=== PATIENT | female | born 1970 | race American Indian/Alaskan Native ===

== ENCOUNTER 2017-10-25 11:50 | Emergency (ER) | payer MEDICAID ==
[2017-10-25 11:51] VITALS: BMI 32.2
[2017-10-25 11:56] VITALS: O2SAT 98
--- NOTE | 2017-10-25 12:31 | C.PDOC ---
History Of Present Illness 47 yo female c/o headache that started just prior to arrival. Pt notes that she was showering, and got a headache "all over". No visual changes, photophobia, n/ v, trauma, fever, URI symptoms, subjective neurological changes. Did not take any pain medication - notes "I dont get headaches." Time Seen by Provider: 10/25/17 11:59 Chief Complaint (Nursing): Headache Past Medical History Reviewed: Historical Data, Nursing Documentation, Vital Signs Vital Signs: Last Vital Signs Temp 98.2 F 10/25/17 13:45 Pulse 75 10/25/17 13:45 Resp 18 10/25/17 13:45 BP 132/75 10/25/17 13:45 Pulse Ox 98 10/25/17 17:23 - Medical History PMH: Bipolar Disorder Surgical History: No Surg Hx Family History: States: No Known Family Hx - Social History Hx Alcohol Use: Yes Hx Substance Use: No - Immunization History Hx Tetanus Toxoid Vaccination: No Hx Influenza Vaccination: No Hx Pneumococcal Vaccination: No Physical Exam - Physical Exam Appears: Non-toxic, No Acute Distress Skin: Normal Color, Warm, Dry, No Rash Head: Atraumatic, Normacephalic Eye(s): bilateral: Normal Inspection, PERRL, EOMI Nose: Normal Oral Mucosa: Moist Neck: Normal ROM, Supple Chest: Symmetrical Cardiovascular: Rhythm Regular Respiratory: Normal Breath Sounds, No Accessory Muscle Use, No Rales, No Rhonchi , No Wheezing Gastrointestinal/Abdominal: Soft, No Tenderness, No Guarding, No Rebound Extremity: Normal ROM, Capillary Refill (<2 seconds) Neurological/Psych: Oriented x3, Normal Speech, Normal Cognition, Normal Cranial Nerves (no focal deficits), Normal Motor (5/5 against resistance b/l), Normal Sensation Gait: Steady ED Course And Treatment - Laboratory Results Result Diagrams: 10/25/17 12:55 10/25/17 12:55 O2 Sat by Pulse Oximetry: 98 (RA) Pulse Ox Interpretation: Normal - CT Scan/US Head w/o contrast Other Rad Studies (CT/US): Read By Radiologist, Radiology Report Reviewed CT/US Interpretation: PROCEDURE: CT scan brain dated 10/25/2017. HISTORY: R/ O Bleed. COMPARISON: None available. TECHNIQUE: Axial computed tomography images were obtained through the head/brain without intravenous contrast. Radiation dose: Total exam DLP = 866.81 mGy-cm. This CT exam was performed using one or more of the following dose reduction techniques: Automated exposure control, adjustment of the mA and/or kV according to patient size, and/ or use of iterative reconstruction technique. FINDINGS: HEMORRHAGE: No acute parenchymal, subarachnoid or extra-axial hemorrhage. BRAIN: No mass effect or edema. No atrophy or chronic microvascular ischemic changes. VENTRICLES: Unremarkable. No hydrocephalus. CALVARIUM: Unremarkable. PARANASAL SINUSES: Hypoplastic frontal sinuses. The remaining visualized paranasal air complexes are otherwise relatively there well-developed and currently well-aerated. MASTOID AIR CELLS: Mastoid air complexes are well-developed and currently well- aerated. OTHER FINDINGS: None. IMPRESSION: No acute intracranial hemorrhage. Progress Note: On reassessment, patient is resting comfortably, is tolerating PO , and pain has improved. Patient has no neurologic deficit, photophobia, rash, fever, or nuchal rigidity. Patient was instructed to follow up with physician/ clinic in 1-2 days. Disposition - Disposition Referrals: Diane Perry MD [Medical Doctor] - Disposition: HOME/ ROUTINE Disposition Time: 13:43 Condition: GOOD Additional Instructions: Follow up with primary medical doctor in 1-3 days without fail for further evaluation. Take medications as prescribed. Return to the emergency department at any time if symptoms persist or worsen. Prescriptions: Naproxen [Naprosyn] 1 tab PO BID PRN #20 tab PRN Reason: Pain Instructions: Acute Headache (ED) Forms: [facility] (Lao) - Clinical Impression Clinical Impression: Headache - PA / ASSISTANT CHIEF NURSING OFFICER / Resident Statement MD/DO has reviewed & agrees with the documentation as recorded. - Scribe Statement The provider has reviewed the documentation as recorded by the Susanibmark Mcgregor All medical record entries made by the Vasile were at my direction and personally dictated by me. I have reviewed the chart and agree that the record accurately reflects my personal performance of the history, physical exam, medical decision making, and the department course for this patient. I have also personally directed, reviewed, and agree with the discharge instructions and disposition.
--- NOTE | 2017-10-25 12:53 | CT ---
PROCEDURE: CT scan brain dated 10/25/2017. HISTORY: R/O Bleed COMPARISON: None available. TECHNIQUE: Axial computed tomography images were obtained through the head/brain without intravenous contrast. Radiation dose: Total exam DLP = 866.81 mGy-cm. This CT exam was performed using one or more of the following dose reduction techniques: Automated exposure control, adjustment of the mA and/or kV according to patient size, and/or use of iterative reconstruction technique. FINDINGS: HEMORRHAGE: No acute parenchymal, subarachnoid or extra-axial hemorrhage. BRAIN: No mass effect or edema. No atrophy or chronic microvascular ischemic changes. VENTRICLES: Unremarkable. No hydrocephalus. CALVARIUM: Unremarkable. PARANASAL SINUSES: Hypoplastic frontal sinuses. The remaining visualized paranasal air complexes are otherwise relatively there well-developed and currently well-aerated. MASTOID AIR CELLS: Mastoid air complexes are well-developed and currently well-aerated. OTHER FINDINGS: None. IMPRESSION: No acute intracranial hemorrhage.
[2017-10-25 13:02] LABS: BASO % 0.3 % (0.0-2.0); EOS # 0.1 K/uL (0.0-0.7); EOS % 0.9 % (0.0-4.0); HEMATOCRIT 39.1 % (34.0-47.0); LYMPH # 1.9 K/uL (1.0-4.3); LYMPH % 22.7 % (20.0-40.0); MEAN CELL VOLUME 89.6 fL (81.0-99.0); MEAN CORPUSCULAR HEMOGLOBIN 29.8 pg (27.0-31.0); MEAN CORPUSCULAR HGB CONC 33.2 g/dL (33.0-37.0); MEAN PLATELET VOLUME 8.9 fL (7.2-11.7); MONO # 0.4 K/uL (0.0-0.8); MONO % 5.3 % (0.0-10.0); WHITE BLOOD COUNT 8.4 K/uL (4.8-10.8)
[2017-10-25 13:13] LABS: ALB/GLOB RATIO 1.1 (1.0-2.1); ALKALINE PHOSPHATASE 54 U/L (38-126); ALT/SGPT 44 U/L (9-52); AST/SGOT 27 U/L (14-36); BILIRUBIN,TOTAL 0.3 mg/dL (0.2-1.3); BLOOD UREA NITROGEN 14 mg/dL (7-17); CALCIUM 9.4 mg/dl (8.6-10.4); CARBON DIOXIDE 30 mmol/L (22-30); CHLORIDE 100 mmol/L (98-107); GFR AFRICAN-AMERICAN > 60; GLUCOSE,RANDOM 94 mg/dL (65-105); POTASSIUM 3.7 mmol/L (3.6-5.2); SODIUM 139 mmol/L (132-148); TOTAL PROTEIN 8.2 g/dL (6.3-8.3)
[2017-10-25 14:03] VITALS: BP 132/75; PULSE 75; RESP 18; TEMP 98.2
== END 2017-10-25 14:04 | disposition home or self-care (01) ==
LOC: C.ER 11:50
DX: R51 Headache (principal)
CPT/HCPCS: 70450; 80053; 85025; 96374; 99284; J1885; J2765

== ENCOUNTER 2017-11-26 18:04 | Emergency (ER) | payer MEDICAID ==
[2017-11-26 18:05] VITALS: BMI 32.2
[2017-11-26 18:19] VITALS: BP 158/92; PULSE 96; RESP 18; TEMP 98.5; O2SAT 98
--- NOTE | 2017-11-26 18:26 | C.PDOC ---
History Of Present Illness 47 year old female reports to the ER complaining of pain to the left wrist. She describes it as an aching pain. She reports that the pain is chronic and she has a history of fracture to affected wrist. Patient states that the pain radiates up the arm. She also reports that she has occasional neck pain which radiates to both of her arms. She reports that she has a numbing sensation in her fingertips in the left arm. She states that she has a history of pinched nerve. She denies any injuries or other medical complaints. Time Seen by Provider: 11/26/17 18:20 Chief Complaint (Nursing): Upper Extremity Problem/Injury History Per: Patient History/Exam Limitations: no limitations Onset/Duration Of Symptoms: Hrs Current Symptoms Are (Timing): Still Present Quality: Aching Severity: Moderate Past Medical History Reviewed: Historical Data, Nursing Documentation, Vital Signs Vital Signs: Last Vital Signs Temp 98.5 F 11/26/17 18:11 Pulse 96 H 11/26/17 18:11 Resp 18 11/26/17 18:11 BP 158/92 H 11/26/17 18:11 Pulse Ox 98 11/26/17 20:34 - Medical History PMH: Bipolar Disorder Denies: Chronic Kidney Disease Surgical History: No Surg Hx Family History: States: No Known Family Hx - Social History Hx Alcohol Use: Yes Hx Substance Use: No - Immunization History Hx Tetanus Toxoid Vaccination: No Hx Influenza Vaccination: Yes Hx Pneumococcal Vaccination: No Review Of Systems Except As Marked, All Systems Reviewed And Found Negative. Constitutional: Negative for: Fever Eyes: Negative for: Vision Change, Redness ENT: Negative for: Ear Pain, Throat Pain Cardiovascular: Negative for: Chest Pain, Palpitations Respiratory: Negative for: Shortness of Breath Gastrointestinal: Negative for: Abdominal Pain Musculoskeletal: Positive for: Neck Pain (neck pain radiates down to both arms) , Arm Pain (pain in left wrist radiates up the arm) Neurological: Positive for: Numbness (numbing sensation to fingertips in left arm). Negative for: Weakness, Headache, Dizziness Physical Exam - Physical Exam Appears: Non-toxic, No Acute Distress Skin: Normal Color, Warm, Dry, No Rash Head: Atraumatic, Normacephalic Eye(s): bilateral: Normal Inspection, EOMI Ear(s): Bilateral: Normal Nose: Normal Oral Mucosa: Moist Neck: Normal, Normal ROM, Supple Chest: Symmetrical Cardiovascular: Rhythm Regular, No Murmur Respiratory: Normal Breath Sounds, No Accessory Muscle Use, No Rales, No Rhonchi , No Wheezing Gastrointestinal/Abdominal: Normal Exam, Soft, No Tenderness Extremity: Normal ROM (normal ROM to all extremities), No Tenderness (left wrist ), No Swelling (left wrist) Neurological/Psych: Oriented x3, Normal Speech Gait: Steady ED Course And Treatment O2 Sat by Pulse Oximetry: 98 (RA) Pulse Ox Interpretation: Normal Medical Decision Making Medical Decision Making: Plan: Motrin 600 mg PO Patient in no acute distress. No signs of trauma or injury where xray is indicated. Patient has no joint swelling, tenderness, erythema or other concern for septic arthritis or infection. Patient advised to take analgesics and to follow up with PCP. Disposition Counseled Patient/Family Regarding: Diagnosis, Need For Followup, Rx Given - Disposition Referrals: Diane Perry MD [Medical Doctor] - Disposition: HOME/ ROUTINE Disposition Time: 18:45 Condition: STABLE Additional Instructions: Follow up with your primary medical doctor or clinic in 2-5 days for further evaluation. Take medications as prescribed. Return to the emergency department at any time if symptoms persist or worsen. Prescriptions: Cyclobenzaprine [Cyclobenzaprine HCl] 10 mg PO TID #21 tab Ibuprofen [Motrin] 600 mg PO Q8 #30 tab Instructions: Arthralgia (ED) Forms: [facility] (Welsh) - POA Present On Arrival: None - Clinical Impression Clinical Impression: Arthralgia - PA / NURSE GYNECOLOGY / Resident Statement MD/DO has reviewed & agrees with the documentation as recorded. - Scribe Statement The provider has reviewed the documentation as recorded by the Vasile Reynolds Provider Attestation All medical record entries made by the Vasile were at my direction and personally dictated by me. I have reviewed the chart and agree that the record accurately reflects my personal performance of the history, physical exam, medical decision making, and the department course for this patient. I have also personally directed, reviewed, and agree with the discharge instructions and disposition.
== END 2017-11-26 18:47 | disposition home or self-care (01) ==
LOC: C.ER 18:04
DX: M25.532 Pain in left wrist (principal)